=== PATIENT | male | born 1990 | race Caucasian/White ===

== ENCOUNTER 2018-01-06 22:55 | Emergency (ER) | payer OTHER ==
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
[2018-01-07 06:34] VITALS: BP 132/74
== END 2018-01-07 06:35 | disposition home or self-care (01) ==
DX: Z77.098 Contact with and (suspected) exposure to other hazardous, chiefly nonmedicinal, chemicals (principal)